=== PATIENT | female | born 1980 | race Two or more races ===

== ENCOUNTER 2020-04-21 08:09 | Day surgery (SDC) | payer OTHER | END 2020-04-21 11:15 | disposition home or self-care (01) | LOC: AMB-ENDOS 08:09 | PROVIDERS: ATTEND Colon & Rectal Surgery | DX: K62.89 Other specified diseases of anus and rectum (principal); K64.8 Other hemorrhoids; Z20.828 Contact with and (suspected) exposure to other viral communicable diseases; Z12.11 Encounter for screening for malignant neoplasm of colon ==

== ENCOUNTER 2024-10-31 07:20 | Day surgery (SDC) | payer OTHER ==
[2024-10-31] MEDS ORDERED: DIPHENHYDRAMINE HCL 50 MG/ML VIAL 1ML IV ONE (12:15)
[2024-10-31] MEDS ORDERED: fentaNYL CITRATE 50 MCG/ML AMPUL IV PUSH ONE (12:15)
[2024-10-31] MEDS ORDERED: ONDANSETRON HCL 2 MG/ML VIAL IV ONE (12:15)
[2024-10-31] MEDS ORDERED: MIDAZOLAM HCL 2 MG/2 ML VIAL IV ONE (12:15)
== END 2024-10-31 13:55 | disposition home or self-care (01) ==
LOC: CIR.AMB 07:20 → ADM 07:20 → CIR.AMB 09:45
PROVIDERS: ATTEND Colon & Rectal Surgery
DX: K52.89 Other specified noninfective gastroenteritis and colitis (principal); K63.5 Polyp of colon